=== PATIENT | male | born 1945 | race Caucasian/White ===

== ENCOUNTER 2016-12-25 13:18 | Observation (INO) ==
[2016-12-25 14:06] LABS: URINE MICRO REVIEW NEEDED? NO; URINE SOURCE CLEAN CATCH
[2016-12-25 14:13] LABS: BASO% 0.5 % (0.0-0.8); EOS# 0.14 X1000 (0.0-0.7); EOS% 1.6 % (0.0-10.0); HEMATOCRIT 39.7 % (42.0-52.0); HEMOGLOBIN 13.2 g/dL (14.0-18.0); IMM GRAN# 0.02 X1000 (0.0-0.04); IMM GRAN% 0.2 % (0.0-0.5); LYMPH# 0.96 X1000 (1.2-3.4); MANUAL DIFF NEEDED? NO; MCHC 33.2 g/dL (33-37); MCV 87.3 FL (81-99); MONO% 5.7 % (1.7-9.3); MPV 10.5 FL (7.4-10.4); PLT 274 X1000 (130-400); RBC 4.55 XMIL (4.7-6.1)
[2016-12-25 14:16] LABS: BILIRUBIN URINE NEGATIVE (NEGATIVE); BLOOD URINE NEGATIVE (NEGATIVE); COLOR STRAW; GLUCOSE URINE NEGATIVE (NEGATIVE); LEUKOCYTES URINE TRACE (NEGATIVE); NITRITE URINE NEGATIVE (NEGATIVE); PROTEIN URINE NEGATIVE (NEGATIVE); SP GRAVITY URINE 1.009; TURBIDITY URINE HAZY (CLEAR); UROBILINOGEN URINE NORMAL (NORMAL)
[2016-12-25 14:18] LABS: UR EPITHELIAL CELLS <10 /HPF (<10); URINE BACTERIA NEGATIVE /HPF; URINE CULTURE NEEDED? YES; URINE RBC <10 /HPF (<10); URINE WBC <10 /HPF (<10)
[2016-12-25 14:46] LABS: AGAP 18; ALBUMIN 3.4 g/dL (3.5-5.0); ALKALINE PHOSPHATASE 174 U/L (32-122); AMYLASE 59 U/L (20-200); BUN 13 mg/dL (8-22); CALCIUM 9.1 mg/dL (8.8-10.2); CHLORIDE 94 mmol/L (98-107); COSMO 270; GOT 34 U/L (10-34); GPT 23 U/L (10-44); LIPASE 30 U/L (13-60); POTASSIUM 3.5 mmol/L (3.5-5.1); SODIUM 135 mmol/L (136-145); TCO2 23 mmol/L (25-35); TOTAL BILIRUBIN 0.28 mg/dL (0.20-1.00); TOTAL PROTEIN 6.5 g/dL (6.3-8.3)
[2016-12-25] MEDS ORDERED: LEVAQUIN 750 MG/D5W 750 MG/150 ML IVPB IV ONE (14:58)
[2016-12-25] MEDS ORDERED: PHENERGAN IV ONE (15:05)
[2016-12-25] MEDS ORDERED: SODIUM CHLORIDE 0.9% INJ ONE (15:05)
[2016-12-25] MEDS ORDERED: DILAUDID IV ONE (15:05)
[2016-12-25] MEDS ORDERED: TYLENOL PO PRN (16:37)
--- NOTE | 2016-12-25 16:50 | Diag Imaging Result Document ---
PROCEDURE NAME: FLAT/UPRIGHT ABD/1 VIEW CHEST - 12/25/2016 FLAT AND UPRIGHT AND CHEST, FOUR VIEWS: FINDINGS: The lungs are well expanded. The heart is not enlarged. No pneumonia. There are several right rib fractures which apparently have occurred in the interim. No contusion or pneumothorax. No free air beneath the diaphragm. No bowel obstruction. No organomegaly. Very little information is obtained due to the patient's body habitus. IMPRESSION: Limited exam, but no definite acute abnormality.
--- NOTE | 2016-12-25 18:54 | Diag Imaging Result Document ---
PROCEDURE NAME: CT ABD/PELVIS W/ IV CONT ONLY - 12/25/2016 CT ABDOMEN AND PELVIS WITH INTRAVENOUS CONTRAST. DOSE REDUCTION PROTOCOL. FINDINGS: The gallbladder has been removed. There is a small hiatal hernia. Normal spleen, pancreas, and adrenal glands. There is mild fatty infiltration of the liver. Normal enhancement of the kidneys. There is a 4 mm stone in the distal left ureter at the ureterovesical junction. Minimal distention of the left ureter. A small cyst arises from the posterior right kidney. Severe atherosclerosis. No aneurysmal dilatation to the abdominal aorta. No bowel obstruction. There are scattered diverticula. No abscess. No free air. The urinary bladder is moderately distended. The prostate is not enlarged. IMPRESSION: 1. There is a 4 mm stone in the distal left ureter at the ureterovesical junction with mild distention of the ureter. 2. Severe atherosclerosis. 3. Cholecystectomy. 4. Small hiatal hernia. 5. Mild fatty infiltration of the liver. A preliminary report was given at 6:39 p.m..
[2016-12-25] MEDS: MORPHINE IV PRN (19:25)
[2016-12-25] MEDS ORDERED: AMBIEN PO PRN (19:28)
[2016-12-25] MEDS ORDERED: ZOFRAN IV PRN (19:28)
[2016-12-25] MEDS ORDERED: D50W SYRINGE ONE (20:35)
[2016-12-25] MEDS ORDERED: FLOMAX PO SCH (21:00)
[2016-12-25] MEDS ORDERED: ZANTAC PO SCH (21:00)
[2016-12-25] MEDS ORDERED: CRESTOR PO SCH (21:00)
--- NOTE | 2016-12-25 21:13 | HISTORY AND PHYSICAL ---
CHIEF COMPLAINT: Left lower quadrant pain. HISTORY OF PRESENT ILLNESS: This 71-year-old white male was struck with severe left lower quadrant pain sometime between breakfast and lunch. He presented to the emergency room was still in considerable pain with nausea. He stated he had a bowel movement that morning and noted no change in his urination. He has not had any fever and no other immediate ongoing problems. In the emergency room the patient had chills but no fever. His laboratory was grossly unremarkable but he continued to have pain in left lower quadrant even after pain medication was given. It was decided to admit him for observation and we also ordered a CT scan of the abdomen and pelvis. After the patient had been admitted to the floor the CT scan was noted show a 4 mm kidney stone at the left UVJ. He is admitted for pain control and IV fluids. PAST MEDICAL HISTORY: 1. History of ischemic heart disease with stent placement. 2. Hypertension. 3. Remote history of myocardial infarction. 4. Gastroesophageal reflux disease. 5. Degenerative joint disease with recent knee replacement per Dr. Thibodeaux. 6. Diabetes mellitus generally well controlled. 7. Morbid obesity. PAST SURGICAL HISTORY: 1. Partial thyroidectomy. 2. Cholecystectomy. 3. Cardiac stent placement. 4. Knee replacement. SOCIAL HISTORY: The patient is a . He is a nonsmoker and rarely uses alcohol. He is accompanied by multiple family members in the emergency room. PRESENT MEDICATIONS: Zoloft 50 mg p.o. daily, Zantac 300 mg p.o. at bedtime, clonidine 0.2 mg p.o. t.i.d., tramadol 50 mg p.o. q.6 p.r.n., Crestor 10 mg p.o. at bedtime, Ambien 10 mg p.o. at bedtime, Indapamide 2.5 mg p.o. daily, Tenormin 25 mg p.o. twice daily, Lasix 40 mg p.o. daily, pantoprazole 40 mg p.o. daily, aspirin 325 mg p.o. daily and Actos 45 mg p.o. daily. REVIEW OF SYSTEMS: Please see history of present illness. The patient denies any cough, wheezing, shortness of breath, chest pain, palpitations. He has had no vomiting but he has felt nauseated since the onset of pain this morning. He has a slight headache which occurred after he was retching, he has no other joint complaints. PHYSICAL EXAMINATION: GENERAL: He is a well-developed obese white male who is in mild to moderate distress. HEENT EXAM: Unremarkable. The sclerae are anicteric. Oral mucosa seems reasonably hydrated and normal coloration. NECK EXAM: Shows no carotid bruits or JVD. LUNGS: Clear auscultation bilaterally. CARDIOVASCULAR: Regular without appreciable murmur or gallop. ABDOMEN: Protuberant and difficult to examine but he does have left lower quadrant pain just above the inguinal ligament. He does not have any suprapubic tenderness. There is no CVA tenderness. EXTREMITIES: Trace peripheral edema. ASSESSMENT AND PLAN: 1. The patient will be admitted to the floor, started on IV fluids. We will start some Flomax and give p.r.n. pain medications. 2. Will continue to monitor the patient's blood sugar and blood pressure. His home medication regime will remain as it was previously. 3. We will hold off on urologic consultation unless he has further difficulty. cc: MD Cody Aggarwal MD
[2016-12-25] MEDS: CATAPRES PO SCH (21:19)
[2016-12-25] MEDS: NS 1,000 ML IV SCH (21:21)
[2016-12-26] MEDS ORDERED: PROTONIX PO SCH (07:00)
[2016-12-26 07:53] VITALS: BP 163/63
[2016-12-26] MEDS ORDERED: LOZOL PO SCH (09:00)
[2016-12-26] MEDS ORDERED: ZOLOFT PO SCH (09:00)
[2016-12-26] MEDS ORDERED: ACTOS PO SCH (09:00)
[2016-12-26] MEDS ORDERED: TENORMIN PO SCH (09:00)
[2016-12-26] MEDS: CATAPRES PO SCH (09:09)
[2016-12-26] MEDS: MORPHINE IV PRN (09:30)
[2016-12-26] MEDS: NS 1,000 ML IV SCH ×2 (09:30→10:47)
[2016-12-26] MEDS ORDERED: LEVAQUIN 500 MG/D5W 500 MG/100 ML IVPB IV SCH (15:00)
== END 2016-12-26 11:13 | disposition home or self-care (01) ==
LOC: ED 13:18 → 4N 16:44 → INTOOBSV 16:44
PROVIDERS: ADMIT Internal Medicine; ATTEND Internal Medicine